=== PATIENT | male | born 1965 ===

== ENCOUNTER 2024-03-13 06:09 | Day surgery (SDC) | payer OTHER, SELFPAY ==
[2024-03-13 06:54] VITALS: BP 143/80
[2024-03-13 06:55] VITALS: BMI 32.7
[2024-03-13 07:03] VITALS: BMI 32.7
[2024-03-13 08:45] VITALS: BP 111/83
[2024-03-13 09:00] VITALS: BP 121/98
== END 2024-03-13 09:15 | disposition home or self-care (01) ==
LOC: SDS 06:09
PROVIDERS: ATTENDING PHYSICIAN Internal Medicine Gastroenterology
DX: Z12.11 Encounter for screening for malignant neoplasm of colon (principal); D12.4 Benign neoplasm of descending colon; K57.30 Diverticulosis of large intestine without perforation or abscess without bleeding; K64.0 First degree hemorrhoids; Z98.890 Other specified postprocedural states
CPT/HCPCS: 45385; 45380; 88305